=== PATIENT | male | born 1990 | race African-American/Black ===

== ENCOUNTER 2020-06-17 13:40 | Emergency (ER) | payer OTHER ==
[2020-06-17 13:45] VITALS: BP 128/76; PULSE 89; TEMP 97.8; BMI 22.4
[2020-06-17] MEDS ORDERED: NAPROXEN 250 MG TABLET ONE (15:05)
[2020-06-17] MEDS ORDERED: NAPROXEN 250 MG TABLET PO ONE (15:08)
== END 2020-06-17 15:30 | disposition left against medical advice (07) ==
LOC: EDSEX → FER 13:40
DX: S92.402A Displaced unspecified fracture of left great toe, initial encounter for closed fracture (principal); W22.8XXA Striking against or struck by other objects, initial encounter
CPT/HCPCS: 73610-TC-LT-FY; 73630-TC-LT; 99283-25